=== PATIENT | male | born 1960 | race African-American/Black ===

== ENCOUNTER 2017-10-07 16:07 | Emergency (ER) | payer OTHER ==
[~2017-10-07] VITALS: Ht 185.4 cm; Wt 109.8 kg
[~2017-10-07 16:07] MED LIST: AMLODIPINE10 MG OR; AMLODIPINE10 MG PO; ATENOLOL25 MG PO; BACTRIM DS1 TAB PO; BENICAR40 MG OR; CIPRO500 MG PO; CIPROFLOXACN500 MG PO; ENALAPRIL20 MG OR; FLEXERIL OR; FLEXERIL PO; LOTRISONE EX; NAPROSYN500 MG OR; PREDNISONE10 MG PO; TERBINAFINE1 % EX; TRIAMCINOLON0.11 EX; [UNRECOGNIZED DRUG - REMARK]
[2017-10-07] MEDS ORDERED: SILVADENE1 % EX (16:37)
[2017-10-07 16:51] VITALS: BP 138/94
== END 2017-10-07 17:07 | disposition home or self-care (01) | DRG 999 ==
LOC: ED 16:07
PROC: 2W2DX4Z Dressing of Left Lower Arm using Bandage (ICD-10-PCS; principal; 2017-10-07)
DX: T65.91XA Toxic effect of unspecified substance, accidental (unintentional), initial encounter (principal); T22.71 Corrosion of third degree of forearm; Y93.89 Activity, other specified; Y92.63 Factory as the place of occurrence of the external cause; Y99.0 Civilian activity done for income or pay; I10 Essential (primary) hypertension

== ENCOUNTER 2019-12-07 | Emergency (ER) | payer SELFPAY ==
[~2019-12-07] MED LIST changes: +SILVADENE1 % EX
[2019-12-07] MEDS ORDERED: AMLODIPINE BESY10 MG PO (11:39)
[2019-12-07] MEDS ORDERED: TESSALON PERLE100 MG PO ×2 (13:20)
[2019-12-07] MEDS ORDERED: AMOXICILLIN875 MG PO (13:20)
== END 2019-12-07 13:35 | disposition home or self-care (01) | DRG 153 ==
DX: J02.0 Streptococcal pharyngitis (principal); I10 Essential (primary) hypertension

== ENCOUNTER 2020-06-15 20:53 | Inpatient (IN) | payer SELFPAY ==
[~2020-06-15] VITALS: Ht 185.4 cm; Wt 101.4 kg
[~2020-06-15 20:53] MED LIST changes: +AMLODIPINE BESY10 MG PO; +AMOXICILLIN875 MG PO; +TESSALON PERLE100 MG PO
[2020-06-15] MEDS ORDERED: VENTOLIN H108 MCG/AC (21:30)
[2020-06-15] MEDS ORDERED: ERYTHROMYCIN250 MG PO (21:31)
[2020-06-15 22:00] LABS: IMMATURE GRANULOCYTES 0.4 % (0.0-5.0); MEAN CELL VOLUME 85.6 fL CALC (80.0-100.0); MEAN CORPUSCULAR HGB 25.5 pG CALC (26.0-32.0); MEAN CORPUSCULAR HGB CONC 29.8 g/dL CAL (32.0-36.0); NEUT# 3.73 thou/uL (1.82-7.42); RED BLOOD COUNT 3.81 mill/uL (4.70-6.10); RED CELL DISTRI WIDTH 15.9 % (11.5-15.5)
[2020-06-15 22:02] LABS: HEMATOCRIT 32.6 % (39.0-50.0); HEMOGLOBIN 9.7 g/dl (14.0-18.0); URINE BLOOD DIPSTICK TRACE-INTACT (NEGATIVE); URINE COLOR YELLOW; URINE GLUCOSE - DIPSTICK NEGATIVE (NEGATIVE); URINE KETONE NEGATIVE (NEGATIVE); URINE LEUK ESTERASE NEGATIVE (NEGATIVE); URINE NITRITE - DIPSTICK NEGATIVE (Negative); URINE PH 5.5 (4.5-8.0); URINE PROTEIN - DIPSTICK 100 mg/dL (NEG-TRACE); URINE SPECIFIC GRAVITY >=1.030; URINE UROBILINOGEN - DIPSTICK >=8.0 E.U./dL (0.2)
[2020-06-15 22:04] LABS: URINE BILIRUBIN - DIPSTICK NEGATIVE (NEGATIVE)
[2020-06-15 22:19] LABS: ALKALINE PHOSPHATASE 80 u/l (38-126); BUN 24 mg/dL (8-23); BUN/CREATININE RATIO 20 (12-20 (CALC)); CHLORIDE 107 mmol/l (95-108); CREATININE 1.2 mg/dL (0.7-1.3); GFR > 60 ML/MIN (>=60 (CALC)); GFR FOR AFR.AMER. > 60 ML/MIN (>=60 (CALC)); POTASSIUM 4.3 mmol/l (3.5-5.1); SODIUM 137 mmol/l (137-146); TOTAL PROTEIN 6.8 g/dL (6.3-8.2)
[2020-06-15 22:21] LABS: D-DIMER 0.79 mg/L (0.19-0.60)
[2020-06-15 22:23] LABS: ANION GAP 13 (6-22 (CALC)); BILIRUBIN, TOTAL 1.2 mg/dL (0.0-1.4); CARBON DIOXIDE 21 mmol/l (22-30); SGOT/AST 69 u/l (19-48)
[2020-06-15 22:32] LABS: ACT PARTIAL THROMBO TIME 20.3 SECONDS (20.0-32.5); INTERNATIONAL NORMALIZED RATIO 1.3 RATIO (0.7-1.3); PROTHROMBIN TIME 13.1 SECONDS (9.0-12.5)
[2020-06-15 23:17] LABS: C-REACTIVE PROTEIN 3.7 mg/dL (0-0.9)
[2020-06-16] VITALS (8 sets, daily range): BP systolic 135–173; BP diastolic 81–109
[2020-06-16 08:54] LABS: HEMATOCRIT 33.4 % (39.0-50.0); HEMOGLOBIN 9.8 g/dl (14.0-18.0); IMMATURE GRANULOCYTES 1.4 % (0.0-5.0); MEAN CELL VOLUME 85.9 fL CALC (80.0-100.0); MEAN CORPUSCULAR HGB 25.2 pG CALC (26.0-32.0); MEAN CORPUSCULAR HGB CONC 29.3 g/dL CAL (32.0-36.0); NEUT# 3.07 thou/uL (1.82-7.42); RED BLOOD COUNT 3.89 mill/uL (4.70-6.10); RED CELL DISTRI WIDTH 16.1 % (11.5-15.5)
[2020-06-16 09:13] LABS: ALBUMIN 3.8 g/dL (3.2-5.0); ALKALINE PHOSPHATASE 77 u/l (38-126); ANION GAP 11 (6-22 (CALC)); BUN 21 mg/dL (8-23); BUN/CREATININE RATIO 19 (12-20 (CALC)); CARBON DIOXIDE 24 mmol/l (22-30); CHLORIDE 107 mmol/l (95-108); CREATININE 1.1 mg/dL (0.7-1.3); GFR > 60 ML/MIN (>=60 (CALC)); GFR FOR AFR.AMER. > 60 ML/MIN (>=60 (CALC)); POTASSIUM 4.6 mmol/l (3.5-5.1); SGOT/AST 54 u/l (19-48); SODIUM 137 mmol/l (137-146); TOTAL PROTEIN 6.6 g/dL (6.3-8.2)
[2020-06-17] VITALS (8 sets, daily range): BP systolic 130–188; BP diastolic 84–95
[2020-06-17 05:31] LABS: HEMATOCRIT 33.5 % (39.0-50.0); HEMOGLOBIN 9.8 g/dl (14.0-18.0); IMMATURE GRANULOCYTES 0.6 % (0.0-5.0); MEAN CELL VOLUME 85.9 fL CALC (80.0-100.0); MEAN CORPUSCULAR HGB 25.1 pG CALC (26.0-32.0); MEAN CORPUSCULAR HGB CONC 29.3 g/dL CAL (32.0-36.0); NEUT# 6.35 thou/uL (1.82-7.42); RED BLOOD COUNT 3.9 mill/uL (4.70-6.10)
[2020-06-17 05:53] LABS: ALBUMIN 3.2 g/dL (3.2-5.0); ALKALINE PHOSPHATASE 62 u/l (38-126); ANION GAP 7 (6-22 (CALC)); BUN 20 mg/dL (8-23); BUN/CREATININE RATIO 22 (12-20 (CALC)); C-REACTIVE PROTEIN 2.1 mg/dL (0-0.9); CARBON DIOXIDE 24 mmol/l (22-30); CHLORIDE 110 mmol/l (95-108); CREATININE 0.9 mg/dL (0.7-1.3); GFR > 60 ML/MIN (>=60 (CALC)); GFR FOR AFR.AMER. > 60 ML/MIN (>=60 (CALC)); POTASSIUM 4.2 mmol/l (3.5-5.1); SGOT/AST 36 u/l (19-48); SODIUM 137 mmol/l (137-146); TOTAL PROTEIN 5.8 g/dL (6.3-8.2)
[2020-06-17 05:58] LABS: BILIRUBIN, TOTAL 0.5 mg/dL (0.0-1.4)
[2020-06-18 04:21] VITALS: BP 136/91
[2020-06-18 05:40] LABS: HEMATOCRIT 34.1 % (39.0-50.0); HEMOGLOBIN 9.8 g/dl (14.0-18.0); MEAN CELL VOLUME 87.7 fL CALC (80.0-100.0); MEAN CORPUSCULAR HGB 25.2 pG CALC (26.0-32.0); MEAN CORPUSCULAR HGB CONC 28.7 g/dL CAL (32.0-36.0); RED BLOOD COUNT 3.89 mill/uL (4.70-6.10); RED CELL DISTRI WIDTH 15.9 % (11.5-15.5)
[2020-06-18 05:56] LABS: ANION GAP 8 (6-22 (CALC)); BUN 18 mg/dL (8-23); BUN/CREATININE RATIO 21 (12-20 (CALC)); CARBON DIOXIDE 27 mmol/l (22-30); CHLORIDE 107 mmol/l (95-108); CREATININE 0.9 mg/dL (0.7-1.3); GFR > 60 ML/MIN (>=60 (CALC)); GFR FOR AFR.AMER. > 60 ML/MIN (>=60 (CALC)); POTASSIUM 4.9 mmol/l (3.5-5.1); SODIUM 137 mmol/l (137-146)
[2020-06-18 08:22] VITALS: BP 139/83
[2020-06-18 11:10] VITALS: BP 134/89
[2020-06-18 15:00] VITALS: BP 126/80
[2020-06-18 19:24] VITALS: BP 138/81
[2020-06-18 20:21] VITALS: BP 130/82
== END 2020-06-18 21:40 | disposition short-term general hospital (02) | DRG 291 ==
LOC: ED 20:53 → ED-I 23:42 → ED 06-16 00:04 → MS2 06-16 00:05
PROVIDERS: Nurse Practitioner; ADMIT Internal Medicine; ATTEND Internal Medicine
DX: I11.0 Hypertensive heart disease with heart failure (principal); I50.21 Acute systolic (congestive) heart failure; J18.9 Pneumonia, unspecified organism; I42.9 Cardiomyopathy, unspecified; R09.02 Hypoxemia; Z20.828 Contact with and (suspected) exposure to other viral communicable diseases
CPT/HCPCS: J1650; Q9967